=== PATIENT | male | born 1990 | race Caucasian/White ===

== ENCOUNTER 2019-07-04 09:05 | Emergency (ER) | payer MEDICARE, MEDICAID ==
[2019-07-04 09:16] VITALS: BP 123/77
--- NOTE | 2019-07-04 10:00 | UC ---
General HPI - HPI Summary HPI Summary: 28 yo with chronic depressive disorder who stopped his medications 2 weks ago without being able to say why. He plans to start them again tonight. He comes in with his mentor. Two days ago he had an episode of emesis with nausea persisting since that time. Had onset of back pain which extends from the cervical spine to the lumbar area. He has tried one dose of aspirin but no other meds. 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 He has had no further vomiting, has had minimal solid intake for the past 2 days , and mostly drinks water, green tea and large amounts of Mountain Dew. He is voiding regularly. - History of Current Complaint Chief Complaint: UCChestPain Stated Complaint: LOWER BACK/CHEST PAIN Time Seen by Provider: 07/04/19 09:48 Hx Obtained From: Patient Onset/Duration: Sudden Onset Pain Intensity: 10 - Allergy/Home Medications Allergies/Adverse Reactions: Allergies Allergy/AdvReac Type Severity Reaction Status Date / Time No Known Allergies Allergy Verified 07/04/19 09:13 Home Medications: Home Medications Cholecalciferol (Vitamin D3) [Vitamin D3] 125 mcg PO DAILY 07/04/19 [History Confirmed 07/04/19] FLUoxetine CAP* [PROzac CAP*] 40 mg PO DAILY 07/04/19 [History Confirmed ] hydrOXYzine HCL TAB* [Atarax 10 MG TAB*] 10 mg PO BID PRN 07/04/19 [History Confirmed 07/04/19] PMH/Surg Hx/FS Hx/Imm Hx Previously Healthy: Yes Neurological History: Other - learning disability Psychological History: Depression - Major depressive disoder - Surgical History Surgical History: None - Family History Known Family History: Positive: Cardiac Disease, Hypertension, Diabetes, Other - mother has had breast cancer. - Social History Occupation: Disabled - but does a lot of volunteer work. Alcohol Use: Rare Substance Use Type: None Smoking Status (MU): Never Smoked Tobacco Review of Systems All Other Systems Reviewed And Are Negative: Yes Constitutional: Positive: Fatigue Skin: Positive: Negative Eyes: Positive: Negative ENT: Positive: Negative Respiratory: Negative: Shortness Of Breath, Cough Cardiovascular: Positive: Chest Pain. Negative: Palpitations Gastrointestinal: Positive: Vomiting - last emesis almost 2 days ago., Nausea Genitourinary: Positive: Negative Physical Exam Triage Information Reviewed: Yes Appearance: Ill-Appearing - looks mildly unwell, improved post zofran., Pain Distress - moderate Vital Signs: Initial Vital Signs Temp 98.5 F 07/04/19 09:13 Pulse 111 07/04/19 09:13 Resp 17 07/04/19 09:13 BP 123/77 07/04/19 09:13 Pulse Ox 99 07/04/19 09:13 Vital Signs Reviewed: Yes Eye Exam: Normal, Other - DAI, normal eom ENT: Positive: Pharynx normal Neck: Positive: Supple, Nontender, No Lymphadenopathy Respiratory: Positive: Lungs clear, Normal breath sounds Cardiovascular: Positive: RRR, No Murmur Abdomen Description: Positive: Nontender, No Organomegaly, Soft. Negative: CVA Tenderness (R), CVA Tenderness (L), Distended, Guarding, Hepatomegaly, Splenomegaly Musculoskeletal Exam: Other - antalgic gait Musculoskeletal: Positive: No Edema, ROM Limited @ - lumbar spine--initially FF to 40 degrees, post toradol much improved. Neurological Exam: Normal Neurological: Positive: Alert, Muscle Tone Normal Psychological Exam: Normal Skin Exam: Other - no jauncide Diagnostics - Laboratory Lab Results: urine with 2+ bilirubin. - EKG Cardiac Rate: NL Cardiac Rhythm: Sinus: Normal, Other Rhythm: Normal - partial RBBB Ectopy: None ST Segment: Non-Specific Course/Dx - Course Course Of Treatment: Improved with ondansetron and injection of toradol with increased range of motion. Bili in urine, but he has no RUQ pain and no hx of liver disease. Diet is poor-- lots of soda and pizza and frozen foods, little veg. Discussed resuming fluoxetine and follow up with Dr. Stuart. - Diagnoses Provider Diagnosis: Back pain Discharge ED - Sign-Out/Discharge Documenting (check all that apply): Patient Departure All imaging exams completed and their final reports reviewed: No Studies - Discharge Plan Condition: Stable Disposition: HOME Patient Education Materials: Low Back Strain (ED), Lower Back Exercises (ED) Referrals: Leopoldo Stuart MD [Primary Care Provider] - Additional Instructions: Your back pain improved with an injection of toradol, a high dose anti- inflammatory. You can use ibuprofen 600mg with the next dose at about 4 this afternoon. Your urine today showed bilirubin, but you do not have symptoms of gallstones or liver problems. Please follow up with Dr. Stuart. You have a sheet of back exercises to help with pain. As discussed, walking more and eating better (more vegetables, less soda) could help you to feel better. - Billing Disposition and Condition Condition: STABLE Disposition: Home
[2019-07-04] MEDS ORDERED: Ketorolac *IM* INJ* 60 MG/2 ML VIAL IM ONE (10:11)
[2019-07-04] MEDS ORDERED: Ondansetron ODT TAB* 4 MG PO ONE (10:11)
== END 2019-07-04 10:54 | disposition home or self-care (01) ==
LOC: UCCORT 09:05
DX: M54.5 Low back pain (principal); F32.9 Major depressive disorder, single episode, unspecified; R53.83 Other fatigue
CPT/HCPCS: 81003; 93005; 96372; 99212; A9270-GY; G0463; J1885